=== PATIENT | male | born 1945 | race Caucasian/White ===

== ENCOUNTER 2023-11-03 10:30 | Day surgery (SDC) | payer MEDICARE ==
[2023-11-02 09:24] VITALS: BMI 26.4
[~2023-11-03 10:30] MED LIST: HYDROmorphone 0.5 MG/0.5 ML SYRINGE IVP PRN; LIDOCAINE 1% (10MG/ML) FOR IV START INTRADERMA PRN; Pre Op ABX Message 1 EACH MISC MISCELLANE ONE; droPERidol 5 MG/2 ML VIAL IVP ONE
--- NOTE | 2023-11-03 10:32 | P.GSHP ---
History of Present Illness H&P Date: 11/03/23 CHIEF COMPLAINT: Chest wall mass HISTORY OF PRESENT ILLNESS: The patient is a 78 year-old male with history of mass along the bilateral chest wall lesion. He presents today for surgical excision. PAST MEDICAL HISTORY: Please see list. PAST SURGICAL HISTORY: Please see list. MEDICATIONS: Please see list. ALLERGIES: Please see list. SOCIAL HISTORY: No illicit drug use FAMILY HISTORY: No reports of Crohn disease or ulcerative colitis. REVIEW OF ORGAN SYSTEMS: CONSTITUTIONAL: No reports of fevers or chills. GI: Denies any blood in stools or constipation. PHYSICAL EXAM: VITAL SIGNS: Stable SKIN: Well perfused. Good skin turgor. 6 cm lesion left upper chest wall. Musculoskeletal: No clubbing cyanosis or edema GENERAL: Well developed and in no acute distress. Pleasant. HEENT: No sclera icterus. Extraocular movements grossly intact. Moist buccal mucosa. Head is atraumatic, normocephalic. Hears conversational speech. No nasal drainage. NECK: Supple without lymphadenopathy. No JV distention. CHEST: Non-labored respirations and equal bilateral excursions. CARDIOVASCULAR: Regular rate and rhythm. Palpable 2+ radial pulses. ABDOMEN: Soft. Non-tender. Nondistended. NEUROLOGIC: No focal or lateralizing signs. PSYCH: Appropriate affect. Alert and oriented to person, place and time. ASSESSMENT: 1. Mass along chest wall, 6 cm lesion left upper chest wall. PLAN: 1. Will proceed of excision of subcutaneous tumor along the chest wall 2. DVT prophylaxis. 3. Antibiotic prophylaxis. 4. Time of recovery, at least one week. Past Medical History Past Medical History: Cancer, Diabetes Mellitus, GERD/Reflux, Hyperlipidemia, Hy pertension, Myocardial Infarction (DC), Sleep Apnea/CPAP/BIPAP Additional Past Medical History / Comment(s): Prostate cancer- surgery & radiation, skin cancer, does not use CPAP. Last Myocardial Infarction Date:: 05/12/2019 History of Any Multi-Drug Resistant Organisms: None Reported Past Surgical History: Cholecystectomy, Coronary Bypass/CABG, Heart Catheterization Additional Past Surgical History / Comment(s): Prostatectomy, skin cancer removal Past Anesthesia/Blood Transfusion Reactions: No Reported Reaction Smoking Status: Former smoker - Past Family History Mother Family Medical History: No Reported History Brother(s) Family Medical History: Cancer Additional Family Medical History / Comment(s): Prostate Medications and Allergies Home Medications Medication Instructions Recorded Confirmed Type Aspirin 81 mg PO DAILY 11/02/23 11/02/23 History Atorvastatin [Lipitor] 80 mg PO HS 11/02/23 11/02/23 History Glimepiride 4 mg PO BID 11/02/23 11/02/23 History Losartan [Cozaar] 50 mg PO DAILY 11/02/23 11/02/23 History Metoprolol Succinate (ER) [Toprol 25 mg PO DAILY 11/02/23 11/02/23 History Xl] Omeprazole [PriLOSEC] 40 mg PO DAILY 11/02/23 11/02/23 History Pregabalin [Lyrica] 200 mg PO BID 11/02/23 11/02/23 History Sennosides/Docusate Sodium [Senna 1 each PO HS 11/02/23 11/02/23 History Plus 8.6-50 mg Softgel] Trospium Chloride 20 mg PO BID 11/02/23 11/02/23 History metFORMIN HCL 1,000 mg PO BID 11/02/23 11/02/23 History Allergies Allergy/AdvReac Type Severity Reaction Status Date / Time No Known Allergies Allergy Verified 11/02/23 08:40
[2023-11-03] MEDS: IV FLUID CONTINUATION 1,000 ML IV ONE ×2 (11:08→13:42)
[2023-11-03 11:16] LABS: Glucose,Whole Blood 128 mg/dL (70-110)
[2023-11-03] MEDS: LACTATED RINGERS 1,000 ML IV SCH (11:18)
[2023-11-03] MEDS: ONDANSETRON 4 MG/2 ML VIAL IVP ONE (11:34)
[2023-11-03] MEDS: ACETAMINOPHEN TAB 500 MG TAB PO STA (11:34)
[2023-11-03] MEDS: DEXAMETHASONE SOD PHOSPHATE 4 MG/ML 1 ML VIAL IV ONE (11:34)
[2023-11-03 11:35] LABS: Basophils # (A) 0.1 k/uL (0-0.2); Basophils % (A) 1 %; Eosinophils # (A) 0.1 k/uL (0-0.7); Eosinophils % (A) 1 %; HCT 46.2 % (39.0-53.0); HGB 15.9 gm/dL (13.0-17.5); Lymphocytes # (A) 2.6 k/uL (1.0-4.8); Lymphocytes % (A) 28 %; MCH 31.5 pg (25.0-35.0); MCHC 34.4 g/dL (31.0-37.0); MCV 91.4 fL (80.0-100.0); Mean Platelet Volume 8.9; Monocytes # (A) 0.5 k/uL (0-1.0); Monocytes % (A) 5 %; Neutrophils # (A) 5.8 k/uL (1.3-7.7); Neutrophils % (A) 64 %; Platelet Count 281 k/uL (150-450); RBC 5.05 m/uL (4.30-5.90); RDW 12.8 % (11.5-15.5); WBC 9.1 k/uL (3.8-10.6)
[2023-11-03] MEDS: HEPARIN SODIUM,PORCINE 5,000 UNIT/ML 1 ML VIAL SQ PRN (11:35)
[2023-11-03 11:58] LABS: African American GFR (CKD) >90 (>60 ml/min/1.73 sqM); Anion Gap 7 mmol/L; Blood Urea Nitrogen 15 mg/dL (9-20); Calcium 9.5 mg/dL (8.4-10.2); Carbon Dioxide 26 mmol/L (22-30); Chloride 105 mmol/L (98-107); Glucose 137 mg/dL (74-99); Non-African American GFR(CKD) 89 (>60 ml/min/1.73 sqM); Potassium 4.6 mmol/L (3.5-5.1); Sodium 138 mmol/L (137-145)
[2023-11-03] MEDS ORDERED: ePHEDrine 50 MG/ML 1 ML VIAL ONE (12:41)
[2023-11-03] MEDS ORDERED: LIDOCAINE 1% INJ 10MG/ML (20 ML MDV) ONE (12:41)
[2023-11-03] MEDS ORDERED: SUCCINYLCHOLINE CHLORIDE 200 MG/10 ML VIAL IV ONE (12:41)
[2023-11-03] MEDS ORDERED: PHENYLEPHRINE-0.9% NACL SYG 1,000 MCG/10 ML SYRINGE ONE (12:41)
[2023-11-03] MEDS ORDERED: ROCURONIUM 10 MG/ML (5 ML VIAL) IV ONE (12:41)
[2023-11-03] MEDS ORDERED: GLYCOPYRROLATE 0.2 MG/ML 2 ML VIAL ONE (12:41)
[2023-11-03] MEDS ORDERED: fentaNYL (PF) 50 MCG/ML 2 ML AMP ONE (12:41)
[2023-11-03] MEDS ORDERED: PROPOFOL 10 MG/ML 20 ML VIAL IV ONE (12:41)
[2023-11-03] MEDS ORDERED: NEOSTIGMINE 1 MG/ML 10 ML VIAL ONE (12:41)
[2023-11-03] MEDS ORDERED: ceFAZolin 1 GM/50 ML BAG (PMX) ONE (12:41)
[2023-11-03] MEDS: SODIUM CHLORIDE 0.9% 50 ML with ceFAZolin 2,000 MG IV ONE (13:02)
[2023-11-03] MEDS: LIDOCAINE 1%-EPI 1:100,000 20 ML VIAL SQ ONE (13:04)
[2023-11-03 14:04] VITALS: TEMP 97.5
--- NOTE | 2023-11-03 14:18 | P.OP ---
Date of Procedure: 11/03/23 Description of Procedure: PREOPERATIVE DIAGNOSES: 1. Left chest wall mass 2. 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 Diabetic neuropathy 4. Coronary artery disease 5. Hypertensive heart disease with cardiomyopathy 6. Hyperlipidemia 7. Gastroesophageal reflux disease 8. Obstructive sleep apnea 9. History of myocardial infarction 10. History of prostate cancer 11. Status post CABG 12. Status post cardiac catheterization POSTOPERATIVE DIAGNOSES: 1. Left chest wall mass, intramuscular 10 x 4 cm 2. 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 Diabetic neuropathy 4. Coronary artery disease 5. Hypertensive heart disease with cardiomyopathy 6. Hyperlipidemia 7. Gastroesophageal reflux disease 8. Obstructive sleep apnea 9. History of myocardial infarction 10. History of prostate cancer 11. Status post CABG 12. Status post cardiac catheterization PROCEDURE PERFORMED: 1. Excision of left chest wall intramuscular lipoma 10 x 4 cm, pectoralis major muscle 2. Complex closure 11 cm chest wall excision SURGEON: Dr. Jenny Land. ANESTHESIA: General with local anesthetic. ESTIMATED BLOOD LOSS: 5 mL. SPECIMENS: Left chest wall lipoma. COMPLICATION: None. FINDINGS: 1. Deep intramuscular pectoralis major chest wall lipoma 10 x 4 x 3 cm INDICATIONS: The patient is a 78-year-old gentleman who presents with increasing pain and discomfort of the left chest wall. Diagnostic studies demonstrated a lipoma. Benefits and risks of procedure including bleeding, infection, persistent pain, as well as recurrence have been described in detail. Informed consent was obtained. DESCRIPTION: Patient was brought into the operating room and laid in supine position. After general induction, the left chest wall prepped and draped in standard sterile fashion. Prior to incision, a time-out protocol was confirmed with surgical team regarding the patient's name and procedure to be performed including preoperative medications. The area was marked with indelible marker in the preanesthesia area. A transverse incision of 11 cm was made over the prominence of the swelling of the left chest wall. The skin was localized with 0.25% Marcaine without epinephrine. Once the field block was created, a transverse incision was made using a #15 blade. The incision was deepened into the dermis. Next electro Bovie cautery was used to create inferior including superior subcutaneous flaps. The breast tissue was circumferentially dissected and elevated creating a flap. The mass was deep to the pectoralis major muscle requiring muscle-splitting technique including extension and the fascia. Circumferentially the soft tissue lipoma was excised. Hemostasis was checked with electro Bovie cautery. The specimen was extracted from the wound site and measured as 10 x 4 cm with a depth of over 3 cm. Next the incision was reapproximated using interrupted 3-0 Vicryl for closure of the fascia and muscle. The breast tissue was reapproximated onto the pectoralis major using 3-0 Vicryl. Interrupted 0 Vicryl for the deep subcutaneous tissue was used to reapproximate the tissue. Subcuticular 3-0 Monocryl in a running fashion was placed. The skin had been cleansed using dilute hydrogen peroxide. Dermabond tape with Dermabond liquid was placed. Once dried, an Optifoam s urgical dressing was placed as a waterproof dressing 4 x 8 cm. At the end of the procedure, needle, sponge and instrument count had been verified correct by the surgical assistant certified. The patient had tolerated the procedure well and taken to the postanesthesia care unit in stable condition. Plan - Discharge Summary Discharge Rx Participant: Yes New Discharge Prescriptions: New Acetaminophen Tab [Tylenol Tab] 1,000 mg PO Q6HR PRN #30 tablet PRN Reason: Pain Ibuprofen [Motrin] 600 mg PO Q8HR PRN #30 tab PRN Reason: Pain Continue Losartan [Cozaar] 50 mg PO DAILY Atorvastatin [Lipitor] 80 mg PO HS Pregabalin [Lyrica] 200 mg PO BID Glimepiride 4 mg PO BID Metoprolol Succinate (ER) [Toprol XL] 25 mg PO DAILY Aspirin 81 mg PO DAILY Omeprazole [PriLOSEC] 40 mg PO DAILY metFORMIN HCL 1,000 mg PO BID Trospium Chloride 20 mg PO BID Sennosides/Docusate Sodium [Senna Plus 8.6-50 mg Softgel] 1 each PO HS Discharge Medication List Aspirin 81 mg PO DAILY 11/02/23 [History] Atorvastatin [Lipitor] 80 mg PO HS 11/02/23 [History] Glimepiride 4 mg PO BID 11/02/23 [History] Losartan [Cozaar] 50 mg PO DAILY 11/02/23 [History] Metoprolol Succinate (ER) [Toprol XL] 25 mg PO DAILY 11/02/23 [History] Omeprazole [PriLOSEC] 40 mg PO DAILY 11/02/23 [History] Pregabalin [Lyrica] 200 mg PO BID 11/02/23 [History] Sennosides/Docusate Sodium [Senna Plus 8.6-50 mg Softgel] 1 each PO HS 11/02/23 [History] Trospium Chloride 20 mg PO BID 11/02/23 [History] metFORMIN HCL 1,000 mg PO BID 11/02/23 [History] Acetaminophen Tab [Tylenol Tab] 1,000 mg PO Q6HR PRN #30 tablet 11/03/23 [Rx] Ibuprofen [Motrin] 600 mg PO Q8HR PRN #30 tab 11/03/23 [Rx] Follow up Appointment(s)/Referral(s): Jenny Land MD [STAFF PHYSICIAN] - 11/08/23 1:30 pm Patient Instructions/Handouts: General Mass Excision (DC) Activity/Diet/Wound Care/Special Instructions: DO NOT REMOVE DRESSING. Will be removed in office November 07 No lifting over 10 pounds in 2 weeks until Nov 16August shower BUT KEEP DRESSING DRY No bath tub soaks for two weeks until Nov 16 Diet as tolerated. Use Tylenol scheduled for the next 24-48 hours for best pain relief. Use ice along incisions for today to prevent swelling. Discharge Disposition: HOME SELF-CARE
[2023-11-03 14:39] VITALS: RESP 20
[2023-11-03 14:55] VITALS: BP 156/72; PULSE 77
== END 2023-11-03 15:15 | disposition home or self-care (01) ==
LOC: OR 10:30
PROVIDERS: ATTEND Surgery Plastic and Reconstructive Surgery
DX: D17.1 Benign lipomatous neoplasm of skin and subcutaneous tissue of trunk (principal); E11.40 Type 2 diabetes mellitus with diabetic neuropathy, unspecified; I25.10 Atherosclerotic heart disease of native coronary artery without angina pectoris; I11.9 Hypertensive heart disease without heart failure; I42.9 Cardiomyopathy, unspecified; E78.5 Hyperlipidemia, unspecified; K21.9 Gastro-esophageal reflux disease without esophagitis; G47.33 Obstructive sleep apnea (adult) (pediatric); I25.2 Old myocardial infarction; Z85.46 Personal history of malignant neoplasm of prostate; Z95.1 Presence of aortocoronary bypass graft; Z90.49 Acquired absence of other specified parts of digestive tract; Z90.79 Acquired absence of other genital organ(s); Z85.828 Personal history of other malignant neoplasm of skin; Z87.891 Personal history of nicotine dependence; Z80.42 Family history of malignant neoplasm of prostate; Z79.82 Long term (current) use of aspirin; Z79.899 Other long term (current) drug therapy; Z79.84 Long term (current) use of oral hypoglycemic drugs; Z79.891 Long term (current) use of opiate analgesic; Z79.818 Long term (current) use of other agents affecting estrogen receptors and estrogen levels
CPT/HCPCS: 80048; 85025; 88307; 21552; J0330; J1644; J1100; J2710; J2405; J0690 ×2; J2001; J3010; J2704; J2371; J1596